=== PATIENT | male | born 1970 | race African-American/Black ===

== ENCOUNTER 2024-02-13 17:24 | Emergency (ER) | payer OTHER ==
[~2024-02-13] VITALS: Ht 182.9 cm; Wt 88.0 kg
[2024-02-13 19:48] LABS: HEMATOCRIT 29.5 % (42.0-52.0); HEMOGLOBIN 9.4 g/dl (13.5-17.5); MEAN CORPUSCULAR HEMOGLOBIN 25.5 pg (27.0-33.0); MEAN CORPUSCULAR HGB CONC 31.9 g/dl (32.0-36.5); MEAN CORPUSCULAR VOLUME 80.2 fl (80.0-96.0); PLATELET COUNT, AUTOMATED 316 10^3/uL (150-450); RED BLOOD COUNT 3.68 10^6/uL (4.30-6.10)
[2024-02-13 20:20] LABS: ATYPICAL LYMPH 22 % (0-5); BASOPHILS 1 % (0-1); LYMPHOCYTES 45 % (16-44); MONOCYTES 5 % (0-5); NEUTROPHILS 27 % (28-66); PLATELET ESTIMATE NORMAL (NORMAL)
[2024-02-13 20:21] LABS: POIKILOCYTOSIS 1+
[2024-02-13 20:22] LABS: BLOOD UREA NITROGEN 15 MG/DL (9-23); CARBON DIOXIDE LEVEL 26 MMOL/L (20-31); CHLORIDE LEVEL 106 MMOL/L (98-107); CREATININE FOR GFR 0.83 MG/DL (0.70-1.30); GLOMERULAR FILTRATION RATE > 60.0 (>56); GLUCOSE, FASTING 81 MG/DL (60-100); POTASSIUM SERUM 4.8 MMOL/L (3.5-5.1); SODIUM LEVEL 139 MMOL/L (136-145)
[2024-02-13] MEDS ORDERED: LOSA25TA13 PO (20:24)
[2024-02-13] MEDS ORDERED: CLOP75TA99 PO (20:24)
[2024-02-13] MEDS ORDERED: LIPI80TA PO (20:24)
[2024-02-13] MEDS ORDERED: AMLO1TAB25 PO (20:24)
[2024-02-13] MEDS ORDERED: ASPI-655 PO (20:24)
[2024-02-13 20:29] LABS: PROCALCITONIN <0.04 ng/ml
[2024-02-13] MEDS ORDERED: FLUID PLACE HOLDER IV ONE (20:35)
[2024-02-13] MEDS ORDERED: VANCOMYCIN HCL IV ONE (20:35)
[2024-02-13] MEDS ORDERED: ISOVUE-370 76% 100ML VIAL As Ordered ONE (20:43)
[2024-02-13] MEDS: cefTRIAXone SOD 1 GM in D5W MINI-BAG PLUS 50 ML IV ONE (20:44)
[2024-02-13 21:25] LABS: INR 1.03; PARTIAL THROMBOPLASTIN TIME 27.9 SECONDS (24.8-34.2); PROTHROMBIN TIME 13.2 SECONDS (12.5-14.5)
[2024-02-13] MEDS: VANCOMYCIN HCL 1,000 MG, VIAL MATE ADAPTER 1 EACH in D5W 250 ML IV ONE (21:31)
[2024-02-13 21:41] LABS: ERYTHROCYTE SEDIMENTATION RATE > 130 mm/hr (0-20)
[2024-02-13] MEDS: VANCOMYCIN HCL 750 MG, VIAL MATE ADAPTER 1 EACH in D5W 250 ML IV ONE (22:40)
[2024-02-13] MEDS ORDERED: HOME MED LIST COMPLETE! XX SCH (23:50)
[2024-02-13] MEDS ORDERED: ASPI-615 PO (23:50)
[2024-02-14 01:00] VITALS: TEMP 98.9
[2024-02-14 03:00] VITALS: BP 153/73
[2024-02-14 03:15] VITALS: O2SAT 99
== END 2024-02-14 03:29 | disposition short-term general hospital (02) ==
LOC: M ED 17:24
DX: K92.2 Gastrointestinal hemorrhage, unspecified (principal); L03.213 Periorbital cellulitis; I10 Essential (primary) hypertension; Z79.82 Long term (current) use of aspirin; Z79.02 Long term (current) use of antithrombotics/antiplatelets; Z79.811 Long term (current) use of aromatase inhibitors; Z79.899 Other long term (current) drug therapy
CPT/HCPCS: 70481; 80048; 83605; 84145; 85025; 85610; 85652; 85730; 86140; 87070; 87077; 87186; 87205; 96365; 96366; 99285; J0696; J3370; Q9967

== ENCOUNTER → 2025-01-27 | Outpatient (REF) ==
[~2025-01-27] MED LIST: AMLO1TAB25 PO; ASPI-615 PO; ASPI-655 PO; ATOR-398 PO; CLOP75TA99 PO; LOSA25TA13 PO
== END ==
LOC: M LAB 09:29
PROVIDERS: ATTEND Pathology Forensic Pathology